=== PATIENT | female | born 1925 | race Caucasian/White ===

== ENCOUNTER → 2016-10-15 | Outpatient (CLI) | payer MEDICARE | LOC: LAB 10:35 | PROVIDERS: ATTEND Internal Medicine Hematology & Oncology | DX: C34.12 Malignant neoplasm of upper lobe, left bronchus or lung (principal); R91.1 Solitary pulmonary nodule | CPT/HCPCS: 36415; 82565; 84520 ==

== ENCOUNTER → 2016-10-18 | Outpatient (CLI) | payer MEDICARE ==
--- NOTE | 2016-10-18 09:44 | Diagnostic Imaging Report ---
PROCEDURE: CT chest with contrast only. TECHNIQUE: Multiple contiguous axial images were obtained through the chest after administration of intravenous contrast. INDICATION: Followup lung mass. COMPARISON: 04/28/2016, 11/26/2015. FINDINGS: Reidentified is the posterior left upper lobe lesion. Compared to 04/28/2016, the inferomedial aspect of the mass has not significantly changed. There is increased groundglass opacity surrounding the mass which may be post therapy pneumonitis. Contiguous with and superior to the mass, an increasing abnormal soft tissue density is seen in the lung parenchyma extending to the apical pleura. This area measures about 1.4 x 2 x 1.8 cm. There is no pleural effusion. No pathologically enlarged mediastinal or hilar lymph nodes are seen. Cardiomegaly is present. An ICD is present. The aorta is not significantly dilated. Images through the upper abdomen show normal adrenal glands. No osteolytic or osteoblastic lesion is identified. IMPRESSION: There has been a change since 04/28/2016. Increasing opacity superior to the mass lesion could be extension of neoplasm or post radiation therapy change. Dictated by: Dictated on workstation # [id number]
== END ==
LOC: RAD 07:59
PROVIDERS: ATTEND Internal Medicine Hematology & Oncology
DX: R91.1 Solitary pulmonary nodule (principal)
CPT/HCPCS: 71260; Q9967